=== PATIENT | male | born 1995 | race Caucasian/White ===

== ENCOUNTER 2017-04-14 11:49 | Inpatient (IN) | payer OTHER ==
[2017-04-14 11:55] VITALS: BMI 23.4
[2017-04-14] MEDS ORDERED: SODIUM CHLORIDE 0.9% 1000 ML INFUS.BAG IV ONE (13:26)
[2017-04-14 14:46] LABS: BASOPHIL 0.4 % (0-2.0); MCH 29.7 pg (25.7-33.7); MCHC 33.5 g/dl (32.0-35.9); MEAN CELL VOLUME 88.7 fl (80-96); MEAN PLT VOLUME 8.5 fl (7.5-11.1); PLATELET COUNT 149 K/MM3 (134-434); RDW 13.7 % (11.9-15.9); WHITE BLOOD COUNT 7.5 K/mm3 (4.0-10.0)
--- NOTE | 2017-04-14 14:53 | PDOC ---
History of Present Illness - General History Source: Patient Exam Limitations: No Limitations - History of Present Illness Initial Comments: 04/14/17 15:05 The patient is a 21-year-old male accompanied by mother, with no significant past medical history, who presents to the ED with 3 days of nausea and diarrhea. Patient reports experiencing 10 episodes of mucous watery stool that he recently noted was mixed with blood. Mother is a medical specialist gave him some fluid but with no relief. He denies any recent antibiotics, traveling, or camping. Pt did have a low grade fever of 100.2. The patient denies any shortness of breath or chest pain. Mother has a hx autoimmune colitis and follows-up Dr. Baldwin. <Mell Rodgers - Last Filed: 04/14/17 15:05> <Joy Rg - Last Filed: 04/14/17 16:30> - General Chief Complaint: Diarrhea Stated Complaint: DEHYDRATION (REFERRED) Past History <Mell Rodgers - Last Filed: 04/14/17 15:05> - Past Medical History Asthma: Yes Seizures: Yes (FEBRILE A CHILD) Other medical history: SCOLIOSIS - Immunization History Immunization Up to Date: Yes - Psycho/Social/Smoking Cessation Hx Anxiety: No Suicidal Ideation: No Smoking Status: No Smoking History: Never smoked Have you smoked in the past 12 months: No Number of Cigarettes Smoked Daily: 0 Information on smoking cessation initiated: No Hx Alcohol Use: No Drug/Substance Use Hx: No Substance Use Type: None <Joy Rg - Last Filed: 04/14/17 16:30> - Past Medical History Allergies/Adverse Reactions: Allergies Allergy/AdvReac Type Severity Reaction Status Date / Time No Known Allergies Allergy Verified 04/14/17 11:51 Home Medications: Ambulatory Orders Naproxen [Naprosyn -] 250 mg PO ONCE 11/01/16 Review of Systems - Review of Systems Able to Perform ROS?: Yes Comments:: 04/14/17 15:06 GENERAL/CONSTITUTIONAL: No chills. (+)fever, weakness. HEAD, EYES, EARS, NOSE AND THROAT: No change in vision. No ear pain or discharge. No sore throat. CARDIOVASCULAR: No chest pain or shortness of breath. RESPIRATORY: No cough, wheezing, or hemoptysis. GASTROINTESTINAL: No vomiting or constipation. (+)Nausea, diarrhea GENITOURINARY: No dysuria, frequency, or change in urination. MUSCULOSKELETAL: No joint or muscle swelling or pain. No neck or back pain. SKIN: No rash NEUROLOGIC: No headache, vertigo, loss of consciousness, or change in strength/ sensation. ENDOCRINE: No increased thirst. No abnormal weight change. HEMATOLOGIC/LYMPHATIC: No anemia, easy bleeding, or history of blood clots. ALLERGIC/IMMUNOLOGIC: No hives or skin allergy. <Mell Rodgers - Last Filed: 04/14/17 15:05> *Physical Exam - Vital Signs Last Vital Signs Temp Pulse Resp BP Pulse Ox 98.5 F 74 18 129/81 100 04/14/17 11:52 04/14/17 11:52 04/14/17 11:52 04/14/17 11:52 04/14/17 11:52 - Physical Exam Comments: 04/14/17 15:07 GENERAL: Awake, alert, and fully oriented, in no acute distress HEAD: No signs of trauma EYES: PERRLA, EOMI, sclera anicteric, conjunctiva clear ENT: Auricles normal inspection, hearing grossly normal, nares patent, oropharynx clear without exudates. Moist mucosa. NECK: Normal ROM, supple, no lymphadenopathy, JVD, or masses LUNGS: Breath sounds equal, clear to auscultation bilaterally. No wheezes, and no crackles HEART: Regular rate and rhythm, normal S1 and S2, no murmurs, rubs or gallops ABDOMEN: Soft, nontender, normoactive bowel sounds. No guarding, no rebound. No masses. Abdomen is very thin. EXTREMITIES: Normal range of motion, no edema. No clubbing or cyanosis. No cords, erythema, or tenderness NEUROLOGICAL: Normal speech, normal gait SKIN: Warm, Dry, normal turgor, no rashes or lesions noted <Mell Rodgers - Last Filed: 04/14/17 15:05> - Vital Signs Last Vital Signs Temp Pulse Resp BP Pulse Ox 98.5 F 74 18 129/81 100 04/14/17 11:52 04/14/17 11:52 04/14/17 11:52 04/14/17 11:52 04/14/17 11:52 <Joy Rg - Last Filed: 04/14/17 16:30> ED Treatment Course - LABORATORY CBC & Chemistry Diagram: 04/14/17 14:30 04/14/17 14:30 - ADDITIONAL ORDERS Additional order review: 04/14/17 14:30 RBC 4.71 MCV 88.7 MCHC 33.5 RDW 13.7 MPV 8.5 Neutrophils % 73.0 Lymphocytes % 14.5 Monocytes % 11.1 H Eosinophils % 1.0 Basophils % 0.4 <Mell Rodgers - Last Filed: 04/14/17 15:05> - LABORATORY CBC & Chemistry Diagram: 04/14/17 14:30 04/14/17 14:30 - ADDITIONAL ORDERS Additional order review: 04/14/17 14:30 RBC 4.71 MCV 88.7 MCHC 33.5 RDW 13.7 MPV 8.5 Neutrophils % 73.0 Lymphocytes % 14.5 Monocytes % 11.1 H Eosinophils % 1.0 Basophils % 0.4 <Joy Rg - Last Filed: 04/14/17 16:30> Medical Decision Making - Medical Decision Making 04/14/17 14:50 21 yo male no pmhx here with c/o three days nausea, diarreha. mucous watery stool, recently mixed with blood. no abd pain, cramping wtih stools. had 10 episodes today, no recent travel, no abx, no camping. does have family h/o mother with ulcerative colitis, did have low grade fever 100.2, and chills. [place] but no vomiting. on exam awake, alert abd soft NT. differential colitis infectious vs. inflammatory, dehydration electrolyte abnormality. plan ivhydration labs possible admission. <Joy Rg - Last Filed: 04/14/17 16:30> *DC/Admit/Observation/Transfer - Attestations Scribe Attestion: 04/14/17 15:09 Documentation prepared by Mell Rodgers, acting as medical resident for Joy Rg MD. <Mell Rodgers - Last Filed: 04/14/17 15:05> - Discharge Dispostion Admit: Yes <Joy Rg - Last Filed: 04/14/17 16:30> Diagnosis at time of Disposition: Colitis, Dehydration - Referrals Referrals: Sloane Sanches MD [Primary Care Provider] -
[2017-04-14] MEDS: DEXTROSE 5%-0.45% SALINE 1,000 ML IV SCH ×2 (15:00→21:46)
[2017-04-14 15:16] LABS: ALBUMIN 3.4 g/dl (3.4-5.0); ALK PHOS 72 U/L (45-117); ANION GAP 8 (8-16); BILIRUBIN,TOTAL 0.3 mg/dL (0.2-1.0); CALCIUM 8.4 mg/dL (8.5-10.1); CO2 29 mmol/L (21-32); COCKROFT - GAULT 130.43; CREATININE 0.9 mg/dL (0.7-1.3); GLUCOSE,RANDOM 91 mg/dL (74-106); SGOT/AST 18 U/L (15-37); SGPT/ALT 14 U/L (12-78)
--- NOTE | 2017-04-14 16:15 | HP ---
CHIEF COMPLAINT: nausea and diarrhea PCP: none HISTORY OF PRESENT ILLNESS: The patient is a 21-year-old male accompanied by mother, with no significant past medical history, who presents to the ED with 3 days of nausea and diarrhea. Patient reports experiencing 10 episodes of mucous watery stool that he recently noted was mixed with blood. Mother is a medical assistant dermatology gave him some fluid but with no relief. He denies any recent antibiotics, traveling, or camping. Pt did have a low grade fever of 100.2 but afebrile in ED. Recent Travel: denies PAST MEDICAL HISTORY: child benito febrile seizures, Mother with + autoimmune colitis following Dr. Baldwin for GI PAST SURGICAL HISTORY: Social History: Smoking: Alcohol: Drugs: Family History: Allergies No Known Allergies Allergy (Verified 04/14/17 11:51) HOME MEDICATIONS: Home Medications Medication Instructions Recorded Naproxen [Naprosyn -] 250 mg PO ONCE 11/01/16 REVIEW OF SYSTEMS CONSTITUTIONAL: Absent: fever, chills, diaphoresis, generalized weakness, malaise, loss of appetite, weight change HEENT: Absent: rhinorrhea, nasal congestion, throat pain, throat swelling, difficulty swallowing, mouth swelling, ear pain, eye pain, visual changes CARDIOVASCULAR: Absent: chest pain, syncope, palpitations, irregular heart rate, lightheadedness , peripheral edema RESPIRATORY: Absent: cough, shortness of breath, dyspnea with exertion, orthopnea, wheezing, stridor, hemoptysis GASTROINTESTINAL: Absent: (+)abdominal pain, abdominal distension,(+) nausea, vomiting, (+) diarrhea, constipation, (+) melena, hematochezia GENITOURINARY: Absent: dysuria, frequency, urgency, hesitancy, hematuria, flank pain, genital pain MUSCULOSKELETAL: Absent: myalgia, arthralgia, joint swelling, back pain, neck pain SKIN: Absent: rash, itching, pallor HEMATOLOGIC/IMMUNOLOGIC: Absent: easy bleeding, easy bruising, lymphadenopathy, frequent infections ENDOCRINE: Absent: unexplained weight gain, unexplained weight loss, heat intolerance, cold intolerance NEUROLOGIC: Absent: headache, focal weakness or paresthesias, dizziness, unsteady gait, seizure, mental status changes, bladder or bowel incontinence PSYCHIATRIC: Absent: anxiety, depression, suicidal or homicidal ideation, hallucinations. PHYSICAL EXAMINATION Vital Signs - 24 hr 04/14/17 11:52 Temperature 98.5 F Pulse Rate 74 Respiratory 18 Rate Blood Pressure 129/81 O2 Sat by Pulse 100 Oximetry (%) GENERAL: Awake, alert, and fully oriented, in no acute distress. HEAD: Normal with no signs of trauma. EYES: Pupils equal, round and reactive to light, extraocular movements intact, sclera anicteric, conjunctiva clear. No lid lag. EARS, NOSE, THROAT: Ears normal, nares patent, oropharynx clear without exudates. Moist mucous membranes. NECK: Normal range of motion, supple without lymphadenopathy, JVD, or masses. LUNGS: Breath sounds equal, clear to auscultation bilaterally. No wheezes, and no crackles. No accessory muscle use. HEART: Regular rate and rhythm, normal S1 and S2 without murmur, rub or gallop. ABDOMEN: Soft, (+) tender, not distended, normoactive bowel sounds, (+) guarding , no rebound, no masses. No hepatomegaly or splenomegaly. MUSCULOSKELETAL: Normal range of motion at all joints. No bony deformities or tenderness. No CVA tenderness. UPPER EXTREMITIES: 2+ pulses, warm, well-perfused. No cyanosis. No clubbing. No peripheral edema. LOWER EXTREMITIES: 2+ pulses, warm, well-perfused. No calf tenderness. No peripheral edema. NEUROLOGICAL: Cranial nerves II-XII intact. Normal speech. Normal gait. PSYCHIATRIC: Cooperative. Good eye contact. Appropriate mood and affect. SKIN: Warm, dry, normal turgor, no rashes or lesions noted, normal capillary refill. Laboratory Results - last 24 hr 04/14/17 04/14/17 14:30 14:30 WBC 7.5 RBC 4.71 Hgb 14.0 Hct 41.8 MCV 88.7 MCHC 33.5 RDW 13.7 Plt Count 149 MPV 8.5 Neutrophils % 73.0 Lymphocytes % 14.5 Monocytes % 11.1 H Eosinophils % 1.0 Basophils % 0.4 Sodium 139 Potassium 4.1 Chloride 102 Carbon Dioxide 29 Anion Gap 8 BUN 10 Creatinine 0.9 Creat Clearance w eGFR > 60 Random Glucose 91 Calcium 8.4 L Total Bilirubin 0.3 AST 18 ALT 14 Alkaline Phosphatase 72 Total Protein 7.0 Albumin 3.4 Lipase 96 ASSESSMENT/PLAN: This 21 year old male with 3 days of nausea and diarrhea with recently seen blood and low grade fever. r/o colitis infectious vs inflammation 1. colitis -IVF hydration -NPO -GI consult, Dr. Baldwin/Harika note appreciated -zofran for nausea -monitor labs and electrolytes -monitor v/s -per GI Levaquin/flagyl -CT abd/pelvic IV only -admission observation med surg Visit type - Emergency Visit Emergency Visit: Yes Care time: The patient presented to the Emergency Department on the above date and was hospitalized for further evaluation of their emergent condition. - New Patient This patient is new to me today: Yes Date on this admission: 04/14/17 - Critical Care Critical Care patient: No
[2017-04-14] MEDS ORDERED: ONDANSETRON 4 MG/2 ML VIAL IVPB PRN (16:16)
--- NOTE | 2017-04-14 16:39 | CON.GI ---
Consult Consult Specialty:: GI Referred by:: ER Reason for Consultation:: bloody diarrhea - History of Present Illness Chief Complaint: 3 days of diarrhea, now with blood History of Present Illness: 21 M with no PMH states he was in his USOH until 3 days ago when he developed acute diarrheal illness with crampy abdominal pain. The problem failed to resolve and today he noted blood mixed with his stool. He does not remember any sick contacts or questionable food source. No recent Ab use and no recent travel He is with his mom who states she has ulcerative colitis but is on no meds and had a "normal colonoscopy" Mom works in an urgent care facility and gave him 3 liters of IVF the other day with no improvement. He is currently calm - History Source History Provided By: Patient, Family Member Limitations to Obtaining History: No Limitations - Alcohol/Substance Use Hx Alcohol Use: No - Smoking History Smoking history: Never smoked Have you smoked in the past 12 months: No Aproximately how many cigarettes per day: 0 - Social History Usual Living Arrangement: With Parent Home Medications - Allergies Allergies/Adverse Reactions: Allergies Allergy/AdvReac Type Severity Reaction Status Date / Time No Known Allergies Allergy Verified 04/14/17 11:51 - Home Medications Home Medications: Ambulatory Orders Naproxen [Naprosyn -] 250 mg PO ONCE 11/01/16 Physical Exam-GI Vital Signs: Vital Signs Temperature 98.5 F 04/14/17 11:52 Pulse Rate 74 04/14/17 11:52 Respiratory Rate 18 04/14/17 11:52 Blood Pressure 129/81 04/14/17 11:52 O2 Sat by Pulse Oximetry (%) 100 04/14/17 11:52 Constitutional: Yes: Well Nourished, Calm HENT: Yes: Normocephalic Neck: Yes: Trachea Midline Cardiovascular: Yes: Regular Rate and Rhythm Respiratory: Yes: CTA Bilaterally Gastrointestinal Inspection: Yes: WNL ...Auscultate: Yes: Hypoactive Bowel Sounds ...Palpate: Yes: Firm/Rigid, Guarding, Tenderness (diffuse), Tenderness, Rebound ((marginal) diffuse) Integumentary: Yes: WNL Neurological: Yes: WNL Psychiatric: Yes: WNL Labs: CBC, BMP 04/14/17 14:30 04/14/17 14:30 Hepatic Panel Total Bilirubin 0.3 mg/dL (0.2-1.0) 04/14/17 14:30 AST 18 U/L (15-37) 04/14/17 14:30 ALT 14 U/L (12-78) 04/14/17 14:30 Alkaline Phosphatase 72 U/L (45-117) 04/14/17 14:30 Albumin 3.4 g/dl (3.4-5.0) 04/14/17 14:30 Imaging - Results Cat Scan: Pending Assessment/Plan 21 M with no signif PMH admitted for management of colitis Mother with questionable history of colitis. Patient with peritoneal signs Rec: IVF IV AbRx CT now NPO Stool for C diff, E coli 0157, other pathogens
[2017-04-14] MEDS ORDERED: LEVOFLOXACIN 500 MG IVPB 100 ML IVPB ONE (17:23)
[2017-04-14] MEDS ORDERED: METRONIDAZOLE 500 MG PREMIXED 100 ML IVPB ONE (17:23)
[2017-04-14] MEDS: LEVOFLOXACIN 500 MG IVPB 100 ML IVPB SCH (17:28)
[2017-04-14] MEDS: METRONIDAZOLE 500 MG PREMIXED 100 ML IVPB SCH ×2 (18:29→21:46)
[2017-04-15] MEDS: METRONIDAZOLE 500 MG PREMIXED 100 ML IVPB SCH ×4 (02:53→21:08)
[2017-04-15] MEDS: DEXTROSE 5%-0.45% SALINE 1,000 ML IV SCH ×3 (04:48→16:50)
[2017-04-15 07:55] LABS: BASOPHIL 0.4 % (0-2.0); EOSINOPHIL 2.1 % (0-4.5); MCH 29.7 pg (25.7-33.7); MCHC 33.6 g/dl (32.0-35.9); MEAN CELL VOLUME 88.6 fl (80-96); MEAN PLT VOLUME 8.8 fl (7.5-11.1); PLATELET COUNT 152 K/MM3 (134-434); RDW 13.8 % (11.9-15.9)
[2017-04-15 08:19] LABS: ALBUMIN 2.8 g/dl (3.4-5.0); AMYLASE 33 U/L (25-115); ANION GAP 6 (8-16); CALCIUM 8.1 mg/dL (8.5-10.1); CO2 28 mmol/L (21-32); GLUCOSE,RANDOM 128 mg/dL (74-106)
[2017-04-15 08:23] LABS: ALK PHOS 59 U/L (45-117); BILIRUBIN,TOTAL 0.3 mg/dL (0.2-1.0); COCKROFT - GAULT 135.87; CREATININE 0.8 mg/dL (0.7-1.3); SGOT/AST 13 U/L (15-37); SGPT/ALT 12 U/L (12-78); TOT PROT 5.9 g/dl (6.4-8.2)
[2017-04-15] MEDS: LEVOFLOXACIN 500 MG IVPB 100 ML IVPB SCH (10:22)
--- NOTE | 2017-04-15 12:25 | PN ---
GI Progress Note Subjective: Patient feeling better 2 BM today-loose, green, no blood Much less abdominal pain - Objective Vital Signs: Vital Signs Temperature 98.2 F 04/15/17 09:02 Pulse Rate 77 04/15/17 09:02 Respiratory Rate 18 04/15/17 09:02 Blood Pressure 112/62 04/15/17 09:02 O2 Sat by Pulse Oximetry (%) 100 04/14/17 18:19 Constitutional: Thin Neck: Yes: Supple Cardiovascular: Yes: Regular Rate and Rhythm Respiratory: Yes: CTA Bilaterally Gastrointestinal Inspection: Yes: WNL ...Auscultate: Yes: Normoactive Bowel Sounds ...Palpate: Yes: Guarding, Tenderness (LLQ (less than yesterday)) ...Percussion: Yes: Dullness Labs: CBC, BMP 04/15/17 06:30 04/15/17 06:30 Assessment/Plan Likely bacterial enteritis (ate take-out fried rice the day prior to onset of symptoms) Likely B cereus CT with diffusely thickened colon wall suggesting colitis Stool studies P Continue Ab Rxx Start low residue diet If tolerated and he continues to improve, can d/c tomorrow AbRx can be d/c'd at time of discharge Illness is self limiting
--- NOTE | 2017-04-15 14:03 | PN ---
Physical Exam: SUBJECTIVE: Patient seen and examined. He is tolerating PO diet well, he had 2 stools no blood noted OBJECTIVE: Vital Signs Period Temp Pulse Resp BP Sys/Manzanares Pulse Ox Last 24 Hr 98.1 F-98.2 F 73-81 18-20 101-135/53-89 100 PE Neuro: alert, awake, cn 2-12intact Pulm: CTAB CV: s1 s2 rrr no mrg Abd: s nt nd + bs Ext: warm, no le edema, + DP pulses Laboratory Results - last 24 hr 04/14/17 04/15/17 04/15/17 22:38 06:30 06:30 WBC 6.0 RBC 4.31 Hgb 12.8 Hct 38.2 MCV 88.6 MCHC 33.6 RDW 13.8 Plt Count 152 MPV 8.8 Neutrophils % 67.0 Lymphocytes % 17.3 Monocytes % 13.2 H Eosinophils % 2.1 D Basophils % 0.4 Sodium 140 Potassium 3.4 L Chloride 106 Carbon Dioxide 28 Anion Gap 6 L BUN 3 L D Creatinine 0.8 Creat Clearance w eGFR > 60 Random Glucose 128 H D Calcium 8.1 L Total Bilirubin 0.3 AST 13 L D ALT 12 Alkaline Phosphatase 59 Total Protein 5.9 L Albumin 2.8 L Total Amylase 33 Lipase 95 Stool Occult Blood Negative Active Medications Generic Name Dose Route Start Last Admin Trade Name Freq PRN Reason Stop Dose Admin Dextrose/Sodium Chloride 1,000 mls @ 200 mls/hr 04/14/17 15:15 04/15/17 10:23 D5-1/2ns - IV 200 mls/hr ASDIR MILKA Administration Levofloxacin 100 mls @ 100 mls/hr 04/14/17 17:00 04/15/17 10:22 Levaquin 500 Mg Premixed Ivpb - IVPB 100 mls/hr DAILY MILKA Administration Protocol Metronidazole 100 mls @ 100 mls/hr 04/14/17 17:00 04/15/17 09:13 Flagyl 500mg Premixed Ivpb - IVPB 100 mls/hr Q6H-IV MILKA Administration Ondansetron HCl 4 mg 04/14/17 16:16 Zofran Injection IVPB Q6H PRN NAUSEA Microbiology 04/14/17 15:48 Gram Stain - Final Stool 04/14/17 22:38 Clostridium difficile Antigen (GERALD) - Final Stool Clostridium difficile Toxin Assay - Final Imaging: - CT with diffusely thickened colon wall suggesting colitis Assessment: 21-year-old male accompanied by mother, with no significant past medical history admitted wtih 3 days of nausea and diarrhea now with blood. Plan: 1. Acute Colitis - Improving - Continue fluids - Continue levaquin/flagyl - Follow stool cx - If continues to improve will dc home tomorrow 2. Hypokalemia - replete potassium 40meq x1 Visit type - Emergency Visit Emergency Visit: Yes ED Registration Date: 04/14/17 Care time: The patient presented to the Emergency Department on the above date and was hospitalized for further evaluation of their emergent condition. - New Patient This patient is new to me today: Yes Date on this admission: 04/15/17 - Critical Care Critical Care patient: No
[2017-04-15] MEDS ORDERED: POTASSIUM CHLORIDE ORAL LIQUID 20 MEQ/15 ML PO ONE (15:00)
[2017-04-16] MEDS: METRONIDAZOLE 500 MG PREMIXED 100 ML IVPB SCH ×2 (02:29→08:58)
[2017-04-16] MEDS: DEXTROSE 5%-0.45% SALINE 1,000 ML IV SCH (06:09)
[2017-04-16 08:26] VITALS: BP 113/58; PULSE 67; TEMP 97.9
[2017-04-16] MEDS: LEVOFLOXACIN 500 MG IVPB 100 ML IVPB SCH (10:17)
--- NOTE | 2017-04-16 16:56 | DS ---
Physical Exam: SUBJECTIVE: Patient seen and examined. He feels well, less diarrhea, stool is watery, no blood. Tolerating PO diet. OBJECTIVE: Vital Signs Period Temp Pulse Resp BP Sys/Manzanares Pulse Ox Last 24 Hr 97.5 F-98.4 F 64-73 18-20 106-133/56-73 99 PE Neuro: alert, awake, cn 2-12intact Pulm: CTAB CV: s1 s2 rrr no mrg Abd: s nt nd + bs Ext: warm, no le edema, + DP pulses HOSPITAL COURSE: Date of Admission:04/14/17 Date of Discharge: 04/16/17 Minutes to complete discharge: 35 Discharge Summary Reason For Visit: COLITIS Current Active Problems Colitis (Acute) Dehydration (Acute) Hospital Course: Initial Hospital Course: Briefly, this 21 year old male accompanied by mother, with no significant past medical history presented with 3 days of nausea and diarrhea. Patient reported experiencing 10 episodes of mucous watery stool that he recently noted was mixed with blood. Mother is a medical translator gave him some fluid but with no relief. He denies any recent antibiotics, traveling, or camping. Pt did have a low grade fever of 100.2 but afebrile in ED. Imaging: - CT with diffusely thickened colon wall suggesting colitis Subsequent Hospital Course/Progress Note/Discharge Summary by a/p: Assessment: 21-year-old male accompanied by mother, with no significant past medical history admitted wtih 3 days of nausea and diarrhea now with blood. Plan: 1. Acute Colitis - Improved - 3 days levaquin, ~3 days flagyl - stool cx pre beltran negative - c diff negative - Home with pcp follow up and low fiber diet 2. Hypokalemia - repleted Dispo: - Home w/ pcp follow up - pt aware and agrees to above plan Condition: Stable - Instructions Diet, Activity, Other Instructions: Please return to the ED for any new, persistent, or worsening symptoms. Follow up with your PCP in 1 week Continue a low residual diet for few days Referrals: Nish Shabazz MD [Staff Physician] - Albertina Sun MD [Staff Physician] - 1 Week (Follow up stool studies ) Sloane Sanches MD [Primary Care Provider] - Disposition: HOME - Home Medications Comprehensive Discharge Medication List: Ambulatory Orders NK [No Known Home Medication] 04/14/17 This patient is new to me today: No Emergency Visit: Yes ED Registration Date: 04/14/17 Care time: The patient presented to the Emergency Department on the above date and was hospitalized for further evaluation of their emergent condition. Critical Care patient: No - Discharge Referral Referred to [facility] Med P.C.: No
== END 2017-04-16 11:33 | disposition home or self-care (01) | DRG 248 ==
LOC: JER 11:49 → JERBED 16:30 → J6S 21:15
PROVIDERS: ADMIT Internal Medicine; ATTEND Nurse Practitioner Acute Care
DX: A04.8 Other specified bacterial intestinal infections (principal); E86.0 Dehydration; E87.6 Hypokalemia; R19.7 Diarrhea, unspecified
CPT/HCPCS: 36415; 74177-TC; 80053; 82150; 82272; 83690; 85025; 87040; 87045; 87046; 87177; 87205; 87209; 87324; 87328; 87329; 87449; 99283-25

== ENCOUNTER 2017-06-14 21:24 | Emergency (ER) | payer OTHER ==
[2017-06-14 21:44] VITALS: BP 127/47; PULSE 58; TEMP 97.9; BMI 20.9
== END 2017-06-15 00:50 | disposition left against medical advice (07) ==
LOC: JERFT 21:24 → JER 21:24
DX: Z53.21 Procedure and treatment not carried out due to patient leaving prior to being seen by health care provider (principal)
CPT/HCPCS: 99281-25

== ENCOUNTER 2018-03-27 21:11 | Emergency (ER) | payer OTHER ==
[2018-03-27 21:35] VITALS: BP 117/70; PULSE 82; TEMP 97.6; BMI 28.3
--- NOTE | 2018-03-27 21:46 | PDOC ---
History of Present Illness - General Chief Complaint: Wound Stated Complaint: CYST Time Seen by Provider: 03/27/18 21:34 History Source: Patient Exam Limitations: No Limitations - History of Present Illness Initial Comments: CHIEF COMPLAINT: 22 y/o afebrile male with no significant PMH c/o painful bump to left armpit today. HISTORY OF PRESENT ILLNESS: Patient does not shave his underarms. He denies fever, streaking, decreased ROM of affected extremity. Vital signs on arrival are within normal limits. REVIEW OF SYSTEMS: GENERAL/CONSTITUTIONAL: No fever/chills. No weakness. No weight change. MUSCULOSKELETAL: +painful bump to left armpit. No neck or back pain. SKIN: No rash or easy bruising. NEUROLOGIC: No headache, vertigo, loss of consciousness, or loss of sensation. PHYSICAL EXAM: VITAL_SIGNS: within normal limits GENERAL_APPEARANCE: alert, cooperative, no obvious discomfort. MENTAL_STATUS: speech clear, oriented X 3, responds appropriately to questions. NEURO: motor intact and sensory intact in injured extremity. EXTREMITIES: 0.25cm papule that is TTP of left axilla, consistent with a small pimple. No fluctuance, streaking, surrounding erythema. Full ROM of affected extremity. SKIN: warm, dry, good color. Past History - Past Medical History Allergies/Adverse Reactions: Allergies Allergy/AdvReac Type Severity Reaction Status Date / Time No Known Allergies Allergy Verified 03/27/18 21:33 Home Medications: Ambulatory Orders NK [No Known Home Medication] 04/14/17 Asthma: Yes Seizures: Yes (FEBRILE A CHILD) - Immunization History Immunization Up to Date: Yes - Suicide/Smoking/Psychosocial Hx Smoking Status: No Smoking History: Never smoked Have you smoked in the past 12 months: No Number of Cigarettes Smoked Daily: 0 Information on smoking cessation initiated: No Hx Alcohol Use: No Drug/Substance Use Hx: No Substance Use Type: None *Physical Exam - Vital Signs Last Vital Signs Temp Pulse Resp BP Pulse Ox 97.6 F 82 20 117/70 98 03/27/18 21:33 03/27/18 21:33 03/27/18 21:33 03/27/18 21:33 03/27/18 21:33 Medical Decision Making - Medical Decision Making A/P: 22 y/o male with pimple to left axilla. Suggested patient take motrin if needed for pain, apply warm/hot compresses 3 times per day and hopefully pimple will resolve on its own. Pt instructed to return to the ER with any worsening or concerning symptoms. The patient verbalizes understanding of all instructions, has no further questions and is awaiting discharge. *DC/Admit/Observation/Transfer Diagnosis at time of Disposition: Sebaceous cyst of left axilla - Discharge Dispostion Disposition: HOME Condition at time of disposition: Good - Referrals - Patient Instructions Printed Discharge Instructions: DI for Epidermal Cyst Additional Instructions: Discharge Instructions: -Apply warm/hot compresses to affected area 3 times per day -Take motrin if needed with food for pain -Follow up with your primary doctor within 1 week -Return to the ER with any worsening or concerning symptoms - Post Discharge Activity
--- NOTE | 2018-03-27 21:49 | PDOC ---
*Physical Exam - Vital Signs Last Vital Signs Temp Pulse Resp BP Pulse Ox 97.6 F 82 20 117/70 98 03/27/18 21:33 03/27/18 21:33 03/27/18 21:33 03/27/18 21:33 03/27/18 21:33 Medical Decision Making - Medical Decision Making 03/27/18 21:49 agree with care from TEDDY Hayden *DC/Admit/Observation/Transfer Diagnosis at time of Disposition: Sebaceous cyst of left axilla - Discharge Dispostion Disposition: HOME Condition at time of disposition: Good - Referrals - Patient Instructions Printed Discharge Instructions: DI for Epidermal Cyst Additional Instructions: Discharge Instructions: -Apply warm/hot compresses to affected area 3 times per day -Take motrin if needed with food for pain -Follow up with your primary doctor within 1 week -Return to the ER with any worsening or concerning symptoms - Post Discharge Activity
== END 2018-03-27 22:09 | disposition home or self-care (01) ==
LOC: JER 21:11
DX: L72.3 Sebaceous cyst (principal); Z87.09 Personal history of other diseases of the respiratory system; Z86.69 Personal history of other diseases of the nervous system and sense organs
CPT/HCPCS: 99281-25

== ENCOUNTER 2018-08-18 17:01 | Emergency (ER) | payer OTHER ==
[2018-08-18 17:11] VITALS: BP 128/76; PULSE 93; TEMP 99; BMI 23.6
--- NOTE | 2018-08-18 17:44 | PDOC ---
History of Present Illness - General Chief Complaint: Sore Throat Stated Complaint: Sore Throat Time Seen by Provider: 08/18/18 17:25 History Source: Patient - History of Present Illness Initial Comments: 08/18/18 18:14 Chief complaint: Sore throat Patient is a healthy 22-year-old male with 2 days of sore throat, no other complaints, no fever or cough or runny nose. Patient complaining of painful swallowing, difficulty eating food but able to drink fluids. Patient states the pain is getting worse. Patient did not take pain medicine, does not want pain medicine. GENERAL/CONSTITUTIONAL: No fever, weakness. dizziness HEAD, EYES, EARS, NOSE AND THROAT: No change in vision. No ear pain or discharge. No sore throat. CARDIOVASCULAR: No chest pain RESPIRATORY: No shortness of breath or cough GASTROINTESTINAL: No pain, nausea, vomiting, diarrhea or constipation GENITOURINARY: No dysuria MUSCULOSKELETAL: No neck or back pain SKIN: No rash NEUROLOGIC: No headache, vertigo, loss of consciousness, or loss of sensation. GENERAL: The patient is awake, alert, and fully oriented, in no acute distress. HEAD: Normal with no signs of trauma. EYES: Pupils equal, round and reactive to light, sclera anicteric, conjunctiva clear. ENT: pharynx: + erythema, no exudate, uvula midline NECK: supple CHEST: clear, nontender, rr ABD: soft, nontender EXTREMITIES: Normal range of motion, no edema. NEUROLOGICAL: Normal speech, normal gait. SKIN: Warm, Dry Past History - Past Medical History Allergies/Adverse Reactions: Allergies Allergy/AdvReac Type Severity Reaction Status Date / Time No Known Allergies Allergy Verified 08/18/18 17:08 Home Medications: Ambulatory Orders Amoxicillin - [Amoxicillin 875mg Tablet -] 875 mg PO BID #14 tab 08/18/18 Asthma: Yes COPD: No Seizures: Yes (FEBRILE A CHILD) - Immunization History Immunization Up to Date: Yes - Suicide/Smoking/Psychosocial Hx Smoking Status: No Smoking History: Never smoked Have you smoked in the past 12 months: No Number of Cigarettes Smoked Daily: 0 Hx Alcohol Use: No Drug/Substance Use Hx: No Substance Use Type: None *Physical Exam - Vital Signs Last Vital Signs Temp Pulse Resp BP Pulse Ox 99.0 F 93 H 18 128/76 100 08/18/18 17:08 08/18/18 17:08 08/18/18 17:08 08/18/18 17:08 08/18/18 17:08 Medical Decision Making - Medical Decision Making 08/18/18 18:16 Patient was sore throat for 2 days, getting worse, no other symptoms. Clinical exam shows erythema and redness to the tonsil area, no signs of peritonsillar abscess. Patient will be started on amoxicillin given symptoms and presentation. *DC/Admit/Observation/Transfer Diagnosis at time of Disposition: Pharyngitis Qualifiers: Pharyngitis/tonsillitis etiology: unspecified etiology Qualified Code(s): J02.9 - Acute pharyngitis, unspecified - Discharge Dispostion Disposition: HOME Condition at time of disposition: Stable - Prescriptions Prescriptions: Amoxicillin - [Amoxicillin 875mg Tablet -] 875 mg PO BID #14 tab - Referrals Referrals: Teri Salazar MD [Primary Care Provider] - - Patient Instructions Printed Discharge Instructions: DI for Pharyngitis/Tonsillopharyngitis -- Adult Additional Instructions: Drink 2-3 L of water daily take amoxicillin 1 tab every 12 hours for 10 days Take Tylenol 650 mg every 4 hours or Motrin 600 mg every 6 hours for fever and pain Return to the nearest ER if short of breath, unable to swallow or feeling sicker Followup with your doctor in one to 2 days - Post Discharge Activity
== END 2018-08-18 17:47 | disposition home or self-care (01) ==
LOC: JERFT 17:01
DX: J02.9 Acute pharyngitis, unspecified (principal)
CPT/HCPCS: 99281-25

== ENCOUNTER 2020-01-21 23:54 | Emergency (ER) | payer OTHER ==
[2020-01-21 23:58] VITALS: TEMP 98.3; BMI 22.0
[2020-01-22] MEDS ORDERED: ONDANSETRON 4 MG/2 ML VIAL IVPUSH ONE (01:01)
[2020-01-22] MEDS ORDERED: SODIUM CHLORIDE 1,000 ML IV STA (01:01)
[2020-01-22] MEDS ORDERED: ONDANSETRON 4 MG/2 ML VIAL ONE (01:06)
--- NOTE | 2020-01-22 01:20 | PDOC ---
Attending Attestation - Resident Resident Name: Michael House - ED Attending Attestation I have performed the following: I have examined & evaluated the patient, The case was reviewed & discussed with the resident, I agree w/resident's findings & plan, Exceptions are as noted - HPI HPI: 01/22/20 01:19 24-year-old male has had multiple episodes of nausea ,vomiting ,diarrhea over the past day Head normocephalic atraumatic Neck is supple Lungs are clear to auscultation CVS regular rate and rhythm S1-S2 Extremities no edema Abdomen is flat some mild right lower quadrant tenderness but no rebound or guarding Skin warm and dry Neuro alert and oriented x3, ambulating with ease - Physicial Exam PE: 01/22/20 01:21 24-year-old male has had multiple episodes of nausea ,vomiting ,diarrhea over the past day Head normocephalic atraumatic eyes pale conjunctiva Neck is supple Lungs are clear to auscultation CVS regular rate and rhythm S1-S2 Extremities no edema Abdomen is flat some mild right lower quadrant tenderness but no rebound or guarding Skin warm and dry Neuro alert and oriented x3, ambulating with ease 01/22/20 01:21 - Medical Decision Making 01/22/20 01:22 Concern for gastroenteritis, appendicitis, colitis, viral syndrome Plan IV fluids, Zofran, CBC chemistries and imaging study and reassess 01/22/20 01:52 ct scan pending, case s/o to night team, Dr English
[2020-01-22 01:30] LABS: BASO % 0.1 % (0-2.0); EOS % 0.8 % (0-4.5); HEMATOCRIT 46.9 % (35.4-49); HEMOGLOBIN 15.7 GM/dL (11.7-16.9); LYMPH % 4.3 % (8-40); MCH 30.3 pg (25.7-33.7); MCHC 33.6 g/dl (32.0-35.9); MEAN CELL VOLUME 90.2 fl (80-96); MEAN PLT VOLUME 9.3 fl (7.5-11.1); MONO % 4.1 % (3.8-10.2); NEUT % 90.7 % (42.8-82.8); PLATELET COUNT 170 K/MM3 (134-434); RDW 13.7 % (11.9-15.9); WHITE BLOOD COUNT 11.1 K/mm3 (4.0-10.0)
--- NOTE | 2020-01-22 01:39 | PDOC ---
History of Present Illness - General Chief Complaint: Vomiting/Diarrhea Stated Complaint: STOMACH VIRUS Time Seen by Provider: 01/22/20 00:37 History Source: Patient Exam Limitations: No Limitations - History of Present Illness Initial Comments: 01/22/20 03:55 24 yo male pmh colitis presents to the ED for 2 days of watery stools, RLQ abdominal pain and NB/NB vomiting. Pt denies F/C, sick contacts, recent travel, CP, SOB, changes in bladder habits. Pt has not taken any medication for his symptoms or seen his primary doctor. Stool is described as watery, not mucousy. Past History - Past Medical History Allergies/Adverse Reactions: Allergies Allergy/AdvReac Type Severity Reaction Status Date / Time cat dander Allergy Verified 01/22/20 01:39 Home Medications: Ambulatory Orders Ondansetron [Zofran *Odt*] 4 mg SL BID #6 od.tablet 01/22/20 Asthma: Yes COPD: No Seizures: Yes (FEBRILE A CHILD) - Immunization History Immunization Up to Date: Yes - Psycho Social/Smoking Cessation Hx Smoking Status: No Smoking History: Never smoked Have you smoked in the past 12 months: No Number of Cigarettes Smoked Daily: 0 Hx Alcohol Use: No Drug/Substance Use Hx: No Substance Use Type: None Review of Systems - Review of Systems Constitutional: Yes: See HPI HEENTM: Yes: See HPI Respiratory: Yes: See HPI Cardiac (ROS): Yes: See HPI ABD/GI: Yes: See HPI : Yes: See HPI Musculoskeletal: Yes: See HPI Integumentary: Yes: See HPI Neurological: Yes: See HPI *Physical Exam - Vital Signs Last Vital Signs Temp Pulse Resp BP Pulse Ox 98.3 F 85 18 141/73 98 01/21/20 23:56 01/21/20 23:56 01/21/20 23:56 01/21/20 23:56 01/21/20 23:56 - Physical Exam General Appearance: Yes: Nourished, Appropriately Dressed. No: Apparent Distress HEENT: positive: EOMI Neck: positive: Supple. negative: Carotid bruit Respiratory/Chest: positive: Lungs Clear, Normal Breath Sounds. negative: Respiratory Distress, Accessory Muscle Use, Rapid RR, Crackles, Rales, Rhonchi, Stridor, Wheezing Cardiovascular: positive: Regular Rhythm, Regular Rate, S1, S2. negative: Edema, JVD, Murmur Vascular Pulses: Dorsalis-Pedis (R): 4+, Doralis-Pedis (L): 4+ Gastrointestinal/Abdominal: positive: Flat, Soft, Tenderness (mild bilateral lower quadrant tenderness on deep palpation). negative: Pulsatile Mass, Distended, Guarding, Rebound Musculoskeletal: negative: CVA Tenderness Extremity: positive: Normal Capillary Refill, Normal Inspection, Normal Range of Motion Integumentary: positive: Normal Color, Dry, Warm Neurologic: positive: Fully Oriented, Alert, Normal Mood/Affect, Normal Response ED Treatment Course - LABORATORY CBC & Chemistry Diagram: 01/22/20 01:15 01/22/20 01:15 - ADDITIONAL ORDERS Additional order review: 01/22/20 01:15 RBC 5.20 MCV 90.2 MCHC 33.6 RDW 13.7 MPV 9.3 Neutrophils % 90.7 H Lymphocytes % 4.3 L D Monocytes % 4.1 Eosinophils % 0.8 Basophils % 0.1 - RADIOLOGY Radiology Studies Ordered: Category Date Time Status ABDOMEN & PELVIS CT WITH CONTR [CT] Stat CT Scan 01/22/20 01:04 Ordered - Medications Given in the ED: ED Medications Discontinued Medications Generic Name Dose Route Start Last Admin Trade Name Freq PRN Reason Stop Dose Admin Ondansetron HCl 4 mg 01/22/20 01:01 01/22/20 01:19 Zofran Injection IVPUSH 01/22/20 01:02 4 mg ONCE ONE Administration Medical Decision Making - Medical Decision Making 01/22/20 04:37 24 yo male pmh colitis presents to the ED for 2 days of watery stools, RLQ abdominal pain and NB/NB vomiting. Pt denies F/C, sick contacts, recent travel, CP, SOB, changes in bladder habits. Pt has not taken any medication for his symp toms or seen his primary doctor. Stool is described as watery, not mucousy. vitals WNL Pt appears comfortable in bed, NAD Labs WNL CT done due to hx of colitis and complaint of RLQ pain. Neg for appendicitis and colitis Pt has not vomited in the ED, tolerating PO, pain improved Likely viral gastroenteritis Pt pablito for DC home with PCP f/u Discharge - Discharge Information Problems reviewed: Yes Clinical Impression/Diagnosis: Abdominal pain Condition: Stable Disposition: HOME - Admission No - Additional Discharge Information Prescriptions: Ondansetron [Zofran *Odt*] 4 mg SL BID #6 od.tablet - Follow up/Referral Referrals: Teri Salazar MD [Primary Care Provider] - - Patient Discharge Instructions Patient Printed Discharge Instructions: DI for Viral Gastroenteritis -- Adult, DI for Abdominal Pain-Adult Additional Instructions: Please see your Primary Doctor within the next 48 hours. Use the medication sent to your Pharmacy for nausea and vomiting as needed. Return to the ER for new or concerning symptoms. Thank you - Post Discharge Activity Work/Back to School Note: Back to Work
[2020-01-22 02:10] LABS: ALBUMIN 4.1 g/dl (3.4-5.0); BILIRUBIN,TOTAL 0.7 mg/dL (0.2-1); CALCIUM 9.3 mg/dL (8.5-10.1); CREATININE 0.9 mg/dL (0.55-1.3); POTASSIUM 3.9 mmol/L (3.5-5.1); TOT PROT 7.9 g/dl (6.4-8.2)
[2020-01-22] MEDS ORDERED: ACETAMINOPHEN 325 MG TABLET (FP) ONE (04:33)
[2020-01-22] MEDS ORDERED: ACETAMINOPHEN 325 MG TABLET (FP) PO ONE (04:33)
[2020-01-22 04:40] VITALS: BP 123/79; PULSE 93
== END 2020-01-22 04:39 | disposition home or self-care (01) ==
LOC: JER 23:54
PROC: 3E033GC Introduction of Other Therapeutic Substance into Peripheral Vein, Percutaneous Approach (ICD-10-PCS; principal; 2020-01-21)
DX: A08.4 Viral intestinal infection, unspecified (principal); B97.89 Other viral agents as the cause of diseases classified elsewhere; Z87.09 Personal history of other diseases of the respiratory system; Z86.69 Personal history of other diseases of the nervous system and sense organs
CPT/HCPCS: 36415; 74177-TC; 80053; 83690; 85025; 96374; 99285-25; J7030

== ENCOUNTER 2020-08-23 21:43 | Emergency (ER) | payer OTHER ==
[2020-08-23 21:49] VITALS: BP 116/62; PULSE 63; TEMP 98.7; BMI 23.1
--- OUTSIDE RECORDS SUMMARY | 2020-08-23 22:14 | XMS ---
:1995 Demographics Address [address] [place] [address] Preferred Language Wolof Marital Status or Buddhist Affiliation [place] Race WH Ethnic Group or Author Organization [facility] Support Name Relationship Address Phone UE Unavailable Unavailable Unavailable FIVE STAR PREMIER Unavailable [address] [place] [address] JAYLENE VORA MOTHER [address] [phone] [place] [address] Re-disclosure Warning The records that you are about to access may contain information from federally- assisted alcohol or drug abuse programs. If such information is present, then the following federally mandated warning applies: This information has been disclosed to you from records protected by federal confidentiality rules (42 CFR part 2). The federal rules prohibit you from making any further disclosure of this information unless further disclosure is expressly permitted by the written consent of the person to whom it pertains or as otherwise permitted by 42 CFR part 2. A general authorization for the release of medical or other information is NOT sufficient for this purpose. The Federal rules restrict any use of the information to criminally investigate or prosecute any alcohol or drug abuse patient.The records that you are about to access may contain highly sensitive health information, the redisclosure of which is protected by Article 27-F of the [facility] Public Health law. If you continue you may haveaccess to information: Regarding HIV / AIDS; Provided by facilities licensed or operated by the [facility] Office of Mental Health; or Provided by the [facility] Office for People With Developmental Disabilities. If such information is present, then the following [facility] mandated warning applies: This information has been disclosed to you from confidential records which are protected by state law. State law prohibits you from making any further disclosure of this information without the specific written consent of the person to whom it pertains, or as otherwise permitted by law. Any unauthorized further disclosure in violation of state law may result in a fine or shelter sentence or both. A general authorization for the release of medical or other information is NOT sufficient authorization for further disclosure. Insurance Providers Payer name Policy type Policy ID Covered Covered democrat's Policy P isaac / Coverage democrat ID relationship to Damico Inf ormation type damico [place] [id number] [place] [id number] HMO Results ID Date Data Source [id number] 05/18/2020 12:00:00 AM EDT [facility] Name Value Range Interpretation Code Description Data Helga rce(s) Supporting Document(s ) nCoV [facility] RNA XXX HUGO+probe- Imp This lab was ordered by MICHEAL BARTON [employer] and reported by [employer]. ID Date Data Source [id number] 05/05/2020 12:00:00 AM EDT [facility] Name Value Range Interpretation Code Description Data Helga rce(s) Supporting Document(s ) nCoV [facility] RNA XXX HUGO+probe- Imp This lab was ordered by [facility] [employer] and reported by [employer]. ID Date Data Source [id number] 05/01/2020 01:25:00 PM EDT [facility] Name Value Range Interpretation Description Data Sup porting Code Source(s) Document(s ) SARS [facility] CORONAVIRUS 2 RNA This lab was ordered by Echo FRNECH and reported by [facility]. ID Date Data Source [id number] 04/07/2020 12:00:00 AM EDT [facility] Name Value Range Interpretation Code Description Data Helga rce(s) Supporting Document(s ) nCoV [facility] RNA XXX HUGO+probe- Imp This lab was ordered by MICEHAL BARTON OR [employer] and reported by [employer] Procedure
--- NOTE | 2020-08-23 22:48 | PDOC ---
History of Present Illness - General Chief Complaint: Pain Stated Complaint: PAIN Time Seen by Provider: 08/23/20 21:51 History Source: Patient Exam Limitations: No Limitations - History of Present Illness Initial Comments: 08/23/20 22:50 Patient is a 24-year-old male who presents to the ED with a left ring finger injury that he sustained yesterday while playing basketball. He states he swatted the ball and felt a pop in his left ring finger. When he looked at it he noticed that the finger was dislocated at the PIP. He states he pulled the finger back into place and did not feel any pain. He noticed significant swelling to the finger. He came to the emergency department today for evaluation. He admits to swelling but denies any pain. He has not taken anything for his symptoms. The patient denies any past medical history and denies any allergies to medications. Past History - Medical History Allergies/Adverse Reactions: Allergies Allergy/AdvReac Type Severity Reaction Status Date / Time cat dander Allergy Verified 01/22/20 01:39 Home Medications: Ambulatory Orders Ondansetron [Zofran *Odt*] 4 mg SL BID #6 od.tablet 01/22/20 Asthma: Yes COPD: No Seizures: Yes (FEBRILE A CHILD) - Immunization History Immunization Up to Date: Yes - Psycho-Social/Smoking History Smoking Status: No Smoking History: Never smoked Have you smoked in the past 12 months: No Number of Cigarettes Smoked Daily: 0 - Substance Abuse Hx (Audit-C & DAST Scrn) How often the patient has a drink containing alcohol: Monthly or less Score: In Men: 4 or > Positive; In Women: 3 or > Positive: 1 Screen Result (Pos requires Nsg. Audit-10AR): Negative Review of Systems - Review of Systems Comments:: 08/23/20 22:51 - Review of Systems Able to Perform ROS?: Yes Constitutional: No: Fever, Chills, Loss of Appetite, Night Sweats, Weakness HEENTM: No: Eye Pain, Vision changes, Ear Pain, Throat Pain, Throat Swelling, Mouth Pain, Difficulty Swallowing Respiratory: No: Cough, Shortness of Breath, Wheezing, Sputum Production Cardiac (ROS): No: Chest Pain, Chest Tightness, Palpitations, Irregular Heart Beat, Edema ABD/GI: No: Nausea, Vomiting, Abdominal Pain, Diarrhea : No Dysuria, No Hematuria, No Frequency, No Urgency Musculoskeletal: No: Muscle Pain, Back Pain, Joint Pain, Muscle Weakness, Neck Pain; positive: Left ring finger dislocation Integumentary: No: Lesions, Rash Neurological: No: Headache, Numbness, Tingling, Weakness, Speech Difficulties *Physical Exam - Vital Signs Last Vital Signs Temp Pulse Resp BP Pulse Ox 98.7 F 63 20 116/62 98 08/23/20 21:46 08/23/20 21:46 08/23/20 21:46 08/23/20 21:46 08/23/20 21:46 - Physical Exam 08/23/20 22:51 - Physical Exam General Appearance: Nourished, Appropriately Dressed, No Distress Neck: Supple, No Lymphadenopathy (R), No Lymphadenopathy (L), No Rigidity, No Decreased range of motion Respiratory/Chest: Lungs Clear, Normal Breath Sounds. No Respiratory Distress, No Accessory Muscle Use Cardiovascular: Regular Rhythm, Regular Rate, S1, S2 Musculoskeletal: Normal Inspection. Left ring finger with swelling appreciated over the PIP. Patient is able to flex and extend at the DIP, PIP and MCP of the left ring finger. Brisk capillary refill appreciated. No significant tenderness appreciated to palpation. Sensation intact to the radial, median and ulnar nerve distributions. Extremity: Normal Capillary Refill, Normal Inspection Integumentary: Normal Color, Dry. No Rash Neurologic: sponsorship coordinator II-XII NML intact, Fully Oriented, Alert, Normal Mood/Affect, Normal Response Procedures - Splinting Splint Location: Left: Finger (Ring finger) Pre-Proc Neuro Vasc Exam: normal Pre-Made Type: metal Post-Proc Neuro Vasc Exam: normal Lele Bandage: no Sling: No Complications: No Post splint xray: No ED Treatment Course - RADIOLOGY Radiology Studies Ordered: Category Date Time Status FINGER(S) LEFT [RAD] Stat Radiology 08/23/20 21:53 Taken Medical Decision Making - Medical Decision Making 08/23/20 22:44 Assessment: Patient is a 24-year-old male with a left ring finger PIP dislocation that he sustained yesterday. Plan: -Finger splinted with an aluminum splint -Left ring finger x-ray reviewed without any fractures appreciated. -Patient advised to keep the splint on and to follow-up with hand surgery for further evaluation and treatment -He understands and agrees with this treatment plan and he is stable for discharge Discharge - Discharge Information Problems reviewed: Yes Clinical Impression/Diagnosis: Dislocation of finger, left, closed Qualifiers: Encounter type: initial encounter Qualified Code(s): S63.259A - Unspecified dislocation of unspecified finger, initial encounter Condition: Stable Disposition: HOME - Follow up/Referral Referrals: Teri Salazar MD [Primary Care Provider] - Stephan Macias MD [Staff Physician] - - Patient Discharge Instructions Patient Printed Discharge Instructions: DI for Finger Dislocation Additional Instructions: Wear the splint at all times. You can remove the splint to shower or wash up. Be sure to follow-up with hand surgery for further evaluation and treatment. Ice the finger to help with swelling. Take Tylenol or ibuprofen for pain. Avoid any physical activity until you are cleared by hand surgery. You have been referred to hand surgery. - Post Discharge Activity Work/Back to School Note: Back to Work
== END 2020-08-23 22:55 | disposition home or self-care (01) ==
LOC: JER 21:43
PROC: 2W3KX1Z Immobilization of Left Finger using Splint (ICD-10-PCS; principal; 2020-08-23)
DX: S63.259A Unspecified dislocation of unspecified finger, initial encounter (principal)
CPT/HCPCS: 73140-TC-LT-FY; 99283-25

== ENCOUNTER 2020-12-27 21:42 | Emergency (ER) | payer OTHER ==
[2020-12-27 21:52] VITALS: BP 140/79; PULSE 81; TEMP 98.9; BMI 25.4
[2020-12-27] MEDS ORDERED: IBUPROFEN 600 MG TABLET (FP) PO ONE ×2 (22:11→22:22)
[2020-12-27] MEDS ORDERED: DEXAMETHASONE 4 MG TABLET (FP) PO ONE (22:13)
[2020-12-27] MEDS ORDERED: DEXAMETHASONE 4 MG TABLET (FP) ONE (22:29)
== END 2020-12-27 22:58 | disposition home or self-care (01) ==
LOC: JER 21:42
DX: R07.0 Pain in throat (principal); R53.1 Weakness; R51.9 Headache, unspecified
CPT/HCPCS: 87070; 87880; 99284-25

== ENCOUNTER 2021-03-14 21:11 | Emergency (ER) | payer OTHER ==
[2021-03-14 21:31] VITALS: BP 130/80; PULSE 73; TEMP 98.3; BMI 23.7
== END 2021-03-14 22:00 | disposition home or self-care (01) ==
LOC: JER 21:11 → JERFT 21:11
DX: J02.9 Acute pharyngitis, unspecified (principal); Z11.52 Encounter for screening for COVID-19
CPT/HCPCS: 87880; 99283-25; C9803; U0003; U0005

== ENCOUNTER 2023-03-19 19:09 | Emergency (ER) | payer OTHER ==
[2023-03-19 19:19] VITALS: BP 128/82; PULSE 70; RESP 20; TEMP 98.2; BMI 22.1
[2023-03-19] MEDS ORDERED: IBUPROFEN 400 MG TABLET (FP) PO ONE ×2 (19:45)
== END 2023-03-19 20:12 | disposition home or self-care (01) ==
LOC: JERFT 19:09
DX: M25.562 Pain in left knee (principal); W10.0XXA Fall (on)(from) escalator, initial encounter; X50.1XXA Overexertion from prolonged static or awkward postures, initial encounter; Y93.02 Activity, running
CPT/HCPCS: 73562-TC-LT-FY; 99283-25

== ENCOUNTER 2023-07-17 13:54 | Emergency (ER) | payer SELFPAY ==
[2023-07-17 14:20] VITALS: BP 117/69; PULSE 67; RESP 20; TEMP 98.8; BMI 23.9
[2023-07-17] MEDS ORDERED: predniSONE 20 MG TABLET (UD) PO ONE (15:04)
[2023-07-17] MEDS ORDERED: KETOROLAC TROMETHAMINE 30 MG/1 ML VIAL IM ONE (15:04)
[2023-07-17] MEDS ORDERED: predniSONE 20 MG TABLET (UD) ONE (15:06)
[2023-07-17] MEDS ORDERED: KETOROLAC TROMETHAMINE 30 MG/1 ML VIAL ONE (15:06)
[2023-07-17 15:35] LABS: THROAT:GRP A STREP NOT DETECTED (NOTDETECTED)
== END 2023-07-17 15:10 | disposition home or self-care (01) ==
LOC: JERFT 13:54
PROC: 3E0233Z Introduction of Anti-inflammatory into Muscle, Percutaneous Approach (ICD-10-PCS; principal; 2023-07-17)
DX: R07.0 Pain in throat (principal); R68.83 Chills (without fever); J02.9 Acute pharyngitis, unspecified; Z20.822 Contact with and (suspected) exposure to COVID-19
CPT/HCPCS: 0241U-QW; 87651; 99284-25

== ENCOUNTER 2025-06-16 15:32 | Emergency (ER) | payer SELFPAY ==
[2025-06-16 15:44] VITALS: BP 129/78; PULSE 71; RESP 19; TEMP 98.1; BMI 23.6
[2025-06-16] MEDS ORDERED: DEXAMETHASONE SOD PHOSPHATE 10 MG/1 ML VIAL ONE (16:10)
[2025-06-16] MEDS: DEXAMETHASONE SOD PHOSPHATE 10 MG/1 ML VIAL IM ONE (16:19)
== END 2025-06-16 16:49 | disposition home or self-care (01) ==
LOC: JERFT 15:32
PROC: 3E023GC Introduction of Other Therapeutic Substance into Muscle, Percutaneous Approach (ICD-10-PCS; principal; 2025-06-16)
DX: L23.7 Allergic contact dermatitis due to plants, except food (principal); R21 Rash and other nonspecific skin eruption; L29.9 Pruritus, unspecified; Y99.0 Civilian activity done for income or pay
CPT/HCPCS: 99284-25; J1100